=== PATIENT | female | born 1995 | race Caucasian/White ===

== ENCOUNTER → 2018-10-17 | Outpatient (CLI) | payer OTHER ==
--- NOTE | 2018-10-17 12:40 | Diagnostic Imaging Report ---
INDICATION: survey. TECHNIQUE: Multiple real-time grayscale images were obtained over the gravid uterus. COMPARISON: None. FINDINGS: There is a single live fetus in a variable presentation. heart rate was recorded at 146 beats per minute. Placenta is posterior. Amniotic fluid volume is normal. Cervical length is 4.9 cm. survey demonstrates kidneys, bladder, and stomach to be unremarkable. Renal pelves are minimally prominent at 5 mm. The brain is unremarkable. There is a four-chamber heart. There is a three-vessel cord with normal insertion. The spine is unremarkable. Biometrical measurements are as follows: Biparietal 4.92 cm, age 21 weeks 0 days. Head circumference 17.40 cm, age 20 weeks 0 days. Abdominal circumference 15.14 cm, age 20 weeks 3 days. Femur length 3.27 cm, age 20 weeks 2 days. Sonographic estimate age: 20 weeks 3 days. Sonographic estimated date of delivery: 03/03/2019. Estimated Weight: 344 gm (+/- 50 gm). LMP percentile: 53%. heart rate: 146 beats per minute. number: 1 of 1. IMPRESSION: Single live IUP of approximately 20 weeks 3 days gestational age. The estimated date of confinement sonographically is 03/03/2019. Dictated by: Dictated on workstation # [id number]
== END ==
LOC: RAD 09:54
PROVIDERS: ATTEND Obstetrics & Gynecology
DX: Z36.89 Encounter for other specified antenatal screening (principal); Z3A.20 20 weeks gestation of pregnancy
CPT/HCPCS: 76805

== ENCOUNTER 2019-02-02 19:41 | Outpatient (CLI) | payer OTHER ==
[~2019-02-02] VITALS: Ht 162.6 cm; Wt 93.9 kg
--- NOTE | 2019-02-02 19:35 | NUR ---
ITALO FLAHERTY presented to unit via AMBULATORY from ED, accompanied by S/O, with c/o LEAKING FLUID. ITALO FLAHERTY weighed, gowned, voided, and to bed. EFHM and TOCO applied, VS taken. ITALO FLAHERTY oriented to bed controls, call light, TV, heat, and A/C controls. ASSESSMENTS TO FOLLOW PER H.JUNIOR GILL.
[2019-02-02] MEDS ORDERED: PREN-53 PO (19:49)
--- NOTE | 2019-02-02 19:50 | NUR ---
sve performed. nitrazine negative. no fluid noted in vaginal vault. cervix closed.
--- NOTE | 2019-02-02 20:03 | NUR ---
notified of pt's arrival, exam and complaint. discharge order received.
--- NOTE | 2019-02-02 20:15 | NUR ---
Discharge packet given and explained per this rn, labor precautions reviewed, understanding voiced per rn. Needs and concerns denied.
--- NOTE | 2019-02-07 14:59 | Physician Query-Final Dx ---
MICHELLE MEYER 02/07/19 1459: Clinic Account Progress/Dx Physician Query: Please give diagnosis Need dx and weeks of gestation Date of Service Feb 02, 2019 at 19:41 RODRIGO HANSON DO 02/07/19 2326: Clinic Account Progress/Dx DIAGNOSIS: Diagnosis 35 weeks gestation leakage of fluid ruled out urinary incontinence MICHELLE MEYER Feb 07, 2019 14:59 RODRIGO HANSON DO Feb 07, 2019 23:26
== END 2019-02-02 20:15 | disposition home or self-care (01) ==
LOC: WSo 19:41 → LDRP 19:42 → WSo 20:15
PROVIDERS: ATTEND Obstetrics & Gynecology
DX: O26.893 Other specified pregnancy related conditions, third trimester (principal); Z3A.35 35 weeks gestation of pregnancy
CPT/HCPCS: 90471; 99213

== ENCOUNTER 2019-02-20 14:37 | Inpatient (IN) | payer OTHER | END 2019-02-23 16:00 | disposition home or self-care (01) | LOC: LDRP 14:37 ==